=== PATIENT | female | born 1995 | race Two or more races ===

== ENCOUNTER → 2024-11-18 | Emergency (ER) | payer OTHER ==
[~2024-11-18] VITALS: Ht 162.6 cm; Wt 54.4 kg
[~2024-11-18] MED LIST: 0.9 % SODIUM CHLORIDE 1,000 ML IV ONE; FAMOTIDINE/PF 20 MG/2 ML VIAL IV PUSH STA; FAMOTIDINE/PF 20 MG/2 ML VIAL ONE; HYOSCYAMINE SULFATE 0.125 MG TAB.SUBL ONE; HYOSCYAMINE SULFATE 0.125 MG TAB.SUBL SL ONE; KETOROLAC TROMETHAMINE 30 MG VIAL IV STA; KETOROLAC TROMETHAMINE 30 MG VIAL ONE; MEPERIDINE HCL/PF 50 MG/ML VIAL IM STA; METOCLOPRAMIDE HCL 5 MG/ML VIAL IV ONE; METOCLOPRAMIDE HCL 5 MG/ML VIAL ONE; ONDANSETRON HCL 2 MG/ML VIAL IV STA; ONDANSETRON HCL 2 MG/ML VIAL ONE
[2024-11-18 05:06] LABS: HEMATOCRIT 35.5 % (36.0-45.00); HEMOGLOBIN 12.6 g/dL (12.0-15.00); MEAN CELL VOLUME 88.3 fL (80.00-100.00); MEAN CORPUSCULAR HEMOGLOBIN 31.3 pg (27.00-32.0); MEAN CORPUSCULAR HGB CONC 35.4 g/dl (32.0-36.0); PLATELET COUNT 447 K/uL (150-450); RED BLOOD COUNT 4.02 M/uL (4.00-6.00); RED CELL DISTRIBUTION WIDTH 12.9 % (11.5-14.5)
[2024-11-18 05:26] LABS: ANION GAP 9 (10.0-20.0); BLOOD UREA NITROGEN 20 mg/dL (7-18); BUN CREA RATIO 26 (7.0-25.0); CALCIUM 9.8 mg/dL (8.5-10.1); CARBON DIOXIDE 26 mEq/L (21-32); CHLORIDE 108 mmol/L (98-107); CREATININE SERUM 0.78 mg/dL (0.55-1.02); GFR 86.72; GLUCOSE FASTING 123 mg/dL (65-100); OSMOLALITY SERUM 282 MOSM/KG (275-295); POTASSIUM 3.64 mEq/L (3.5-5.1); SODIUM 139 mmol/L (136-145)
[2024-11-18 05:32] LABS: HCG QUANTITATIVE < 1 mUI/mL (1-3)
[2024-11-18 06:40] LABS: URINE APPEARANCE Turbid; URINE BILIRRUBIN Negative (NEGATIVE); URINE BLOOD Large; URINE COLOR Yellow; URINE GLUCOSE Negative (NEGATIVE); URINE LEUKOCYTE Negative; URINE NITRATE Negative; URINE PROTEIN Trace (NEGATIVE); URINE UROBILINOGEN 0.2 E.U./dl
[2024-11-18 06:43] LABS: URINE BACTERIA 239.8 uL (0.0-1933); URINE EPITHELIAL CELLS 15.6 uL (0.0-38.8); URINE RBC 2113.1 uL (0.0-20.8); URINE WBC 34.9 uL (0.0-23.2)
[2024-11-18 06:49] LABS: URINE CAST 0.58 uL (0.0-1.40); URINE KETONE 80 (NEGATIVE)
== END | disposition left against medical advice (07) ==
LOC: ER 04:06
PROVIDERS: General Practice
DX: R10.2 Pelvic and perineal pain (principal); N39.0 Urinary tract infection, site not specified